=== PATIENT | female | born 1950 | race Caucasian/White ===

== ENCOUNTER 2017-05-02 13:15 | Emergency (ER) | payer OTHER ==
[~2017-05-02] VITALS: Ht 160 cm; Wt 70.2 kg
[~2017-05-02 13:15] MED LIST: ADVAIR HFA120 INHALA IH; ALBUTEROL2.5 MG/3 M IH; CEFTIN500 MG PO; CITALOPRAM HBR40 MG PO; CLINDAMYCIN HC300 MG PO; ENDOCET 5-3251 EACH PO; GABAPENTIN600 MG PO; GLIMEPIRIDE4 MG PO; JANUVIA100 MG PO; LEVAQUIN500 MG PO; LOSARTAN-HCTZ1 EAC2 PO; METFORMIN HCL500 MG PO; NICOTINE PATCH1 EAC2 TD; PIOGLITAZONE HC30 MG PO; PREDNISONE10 M1 PO; SIMVASTATIN80 MG PO; SPIRIVA RESPIMAT4 GM IH; VENTOLIN HFA18 GM IH; ZITHROMAX250 MG PO
[2017-05-02] MEDS ORDERED: PERCOCET 5/31 TABLET PO (18:15)
[2017-05-02 21:17] VITALS: BP 112/78
== END 2017-05-02 21:18 | disposition home or self-care (01) ==
LOC: EME → EDBD 13:15 → EME 13:15
PROC: 2W3MX1Z Immobilization of Left Lower Extremity using Splint (ICD-10-PCS; principal; 2017-05-02)
DX: S82.102A Unspecified fracture of upper end of left tibia, initial encounter for closed fracture (principal); M25.562 Pain in left knee; M25.512 Pain in left shoulder; W10.9XXA Fall (on) (from) unspecified stairs and steps, initial encounter; E78.5 Hyperlipidemia, unspecified; I10 Essential (primary) hypertension; E11.9 Type 2 diabetes mellitus without complications; Z79.84 Long term (current) use of oral hypoglycemic drugs; Z88.0 Allergy status to penicillin; F17.200 Nicotine dependence, unspecified, uncomplicated
CPT/HCPCS: 71010; 72170; 73030; 73560; 73590; 73630; 99281; 99285; J3010

== ENCOUNTER 2017-05-03 20:41 | Inpatient (IN) | payer OTHER ==
[~2017-05-03] VITALS: Ht 162.6 cm; Wt 75.7 kg
[~2017-05-03 20:41] MED LIST changes: +PERCOCET 5/31 TABLET PO
[2017-05-03 21:27] LABS: HEMATOCRIT 36.1 % (36.0-46.0); MCH 25.1 PG (29.0-34.0); MCHC 32.7 G/DL (30.0-36.0); MCV 76.6 FL (83-99); MEAN PLAT.VOLUME 8.5 uM^3 (9.5-12.4); PLATELET COUNT 259 K/uL (156-360); RBC DIS.WIDTH-CV 17.4 % (11.8-14.6); RED BLOOD COUNT 4.71 M/uL (3.80-5.20); WHITE BLOOD COUNT 12.7 K/uL (4.1-10.2)
[2017-05-03 21:35] LABS: CHLORIDE 95 mEq/L (99-109); POTASSIUM 3.5 mEq/L (3.7-5.4); SODIUM 132 mEq/L (136-147)
[2017-05-03 21:37] LABS: GLUCOSE 193 mg/dL (70-99)
[2017-05-03 21:38] LABS: ANION GAP 13 MEQ/L (2-14)
[2017-05-03 21:41] LABS: GFR ESTIMATE (CALCULATED) > 59 mL/min/
[2017-05-03 21:42] LABS: UREA NITROGEN (BUN) 8 mg/dL (9-23)
[2017-05-04] VITALS (7 sets, daily range): BP systolic 120–147; BP diastolic 61–81
[2017-05-04 04:42] LABS: ADD MIUA? YES; BILIRUBIN NEGATIVE; BLOOD NEGATIVE; COLOR YELLOW ((YELLOW)); GLUCOSE (STRIP) NEGATIVE; KETONES 20; LEUKOCYTES SMALL; NITRITE NEGATIVE; PROTEIN (STRIP) 30; SPECIFIC GRAVITY 1.015 (1.000-1.030); UROBILINOGEN 0.2 MG/DL (0.2-1.0)
[2017-05-04 04:56] LABS: BACTERIA 1+ /HPF; CALCIUM OXALATE CRYSTALS 1+ /HPF; EPITHELIAL CELLS 1+ /HPF; HYALINE CASTS 0-5 /LPF; MUCUS TRACE /LPF; UCUL ADDED? YES; WHITE BLOOD CELLS 30-40 /HPF (0-5)
[2017-05-04 05:34] LABS: HEMATOCRIT 36.2 % (36.0-46.0); MCH 25.5 PG (29.0-34.0); MCHC 32.3 G/DL (30.0-36.0); MCV 78.9 FL (83-99); MEAN PLAT.VOLUME 9.1 uM^3 (9.5-12.4); PLATELET COUNT 272 K/uL (156-360); RBC DIS.WIDTH-CV 17.8 % (11.8-14.6); RBC DIS.WIDTH-SD 49.1 % (39-53); RED BLOOD COUNT 4.59 M/uL (3.80-5.20); WHITE BLOOD COUNT 10.8 K/uL (4.1-10.2)
[2017-05-04 05:55] LABS: ANION GAP 9 MEQ/L (2-14); CHLORIDE 95 MEQ/L (99-109); GFR ESTIMATE (CALCULATED) > 59 mL/min/; GLUCOSE 167 mg/dL (70-99); POTASSIUM 3.9 MEQ/L (3.7-5.4); SAMPLE HEMOLYSIS CHECK 0; SAMPLE ICTERIC CHECK 0; SAMPLE LIPEMIA CHECK 0; SODIUM 131 MEQ/L (136-147); UREA NITROGEN (BUN) 10 mg/dL (9-23)
[2017-05-04] MEDS ORDERED: REQUIP0.25 MG PO (07:21)
[2017-05-04] MEDS ORDERED: GLUCOPHAGE500 MG PO (07:22)
[2017-05-04] MEDS ORDERED: HYZAAR 100-11 TABLET PO (13:40)
[2017-05-04] MEDS ORDERED: MULTIVITAMIN1 EAC2 PO (13:41)
[2017-05-04] MEDS ORDERED: CALCIUM 600+D31 EACH PO (13:41)
[2017-05-05 04:50] VITALS: BP 131/78
[2017-05-05 10:07] VITALS: BP 140/81
[2017-05-05 12:48] LABS: POINT-OF-CARE METER ID UU14162513
[2017-05-05 19:27] VITALS: BP 126/71
[2017-05-06 08:00] VITALS: BP 151/89
[2017-05-06 08:26] LABS: POINT-OF-CARE METER ID UU14162513
[2017-05-06 11:27] VITALS: BP 112/66
[2017-05-06 12:54] LABS: POINT-OF-CARE METER ID UU13113700
[2017-05-06 16:10] VITALS: BP 109/69
[2017-05-06 18:22] LABS: POINT-OF-CARE METER ID UU14117124
[2017-05-06 19:24] VITALS: BP 119/72
[2017-05-06 22:02] LABS: POINT-OF-CARE METER ID UU14188577
[2017-05-06 23:24] VITALS: BP 112/65
[2017-05-07 03:38] VITALS: BP 124/73
[2017-05-07 06:49] LABS: POINT-OF-CARE METER ID UU14117124
[2017-05-07 07:58] VITALS: BP 144/58
[2017-05-07 10:51] LABS: POINT-OF-CARE METER ID UU14208753
[2017-05-07 14:35] LABS: HEMATOCRIT 33.6 % (36.0-46.0); MCH 26.1 PG (29.0-34.0); MCHC 31.8 G/DL (30.0-36.0); MEAN PLAT.VOLUME 8.9 uM^3 (9.5-12.4); PLATELET COUNT 228 K/uL (156-360); RBC DIS.WIDTH-CV 18.4 % (11.8-14.6); RBC DIS.WIDTH-SD 53.5 % (39-53); WHITE BLOOD COUNT 10.3 K/uL (4.1-10.2)
[2017-05-07 15:04] LABS: ANION GAP 8 MEQ/L (2-14); CHLORIDE 101 MEQ/L (99-109); GFR ESTIMATE (CALCULATED) > 59 mL/min/; GLUCOSE 154 mg/dL (70-99); POTASSIUM 3.9 MEQ/L (3.7-5.4); SAMPLE HEMOLYSIS CHECK 0; SAMPLE ICTERIC CHECK 0; SAMPLE LIPEMIA CHECK 0; UREA NITROGEN (BUN) 14 mg/dL (9-23)
[2017-05-07 15:14] LABS: SODIUM 138 MEQ/L (136-147)
[2017-05-07 16:05] VITALS: BP 124/78
[2017-05-07 16:35] LABS: POINT-OF-CARE METER ID UU14188577
[2017-05-07 21:31] LABS: POINT-OF-CARE METER ID UU14188577
[2017-05-07 23:32] VITALS: BP 122/77
[2017-05-08 03:53] VITALS: BP 134/72
[2017-05-08 06:13] LABS: POINT-OF-CARE METER ID UU14117124
[2017-05-08 07:40] VITALS: BP 129/76
[2017-05-08 11:53] VITALS: BP 140/77
[2017-05-08 15:35] VITALS: BP 135/79
[2017-05-08 16:32] LABS: POINT-OF-CARE METER ID UU14117124
[2017-05-08 20:25] VITALS: BP 121/67
[2017-05-08 22:02] LABS: POINT-OF-CARE METER ID UU14117124
[2017-05-09] VITALS (7 sets, daily range): BP systolic 119–152; BP diastolic 70–83
[2017-05-09 06:04] LABS: HEMATOCRIT 33.7 % (36.0-46.0); MCH 25.2 PG (29.0-34.0); MCV 78.7 FL (83-99); PLATELET COUNT 264 K/uL (156-360); RBC DIS.WIDTH-SD 50.3 % (39-53); RED BLOOD COUNT 4.28 M/uL (3.80-5.20); WHITE BLOOD COUNT 9.8 K/uL (4.1-10.2)
[2017-05-09 06:32] LABS: ANION GAP 10 MEQ/L (2-14); CHLORIDE 93 MEQ/L (99-109); GFR ESTIMATE (CALCULATED) > 59 mL/min/; GLUCOSE 181 mg/dL (70-99); POTASSIUM 3.2 MEQ/L (3.7-5.4); SAMPLE HEMOLYSIS CHECK 0; SAMPLE ICTERIC CHECK 0; SAMPLE LIPEMIA CHECK 0; SODIUM 136 MEQ/L (136-147); UREA NITROGEN (BUN) 13 mg/dL (9-23)
[2017-05-09 06:57] LABS: POINT-OF-CARE METER ID UU14117124
[2017-05-09 07:58] LABS: MAGNESIUM 1.1 mg/dl (1.3-2.7)
[2017-05-10 04:31] VITALS: BP 142/85
[2017-05-10 06:38] LABS: HEMATOCRIT 33.8 % (36.0-46.0); MCH 26.8 PG (29.0-34.0); MCHC 33.4 G/DL (30.0-36.0); MCV 80.3 FL (83-99); MEAN PLAT.VOLUME 9.3 uM^3 (9.5-12.4); PLATELET COUNT 285 K/uL (156-360); RBC DIS.WIDTH-CV 17.9 % (11.8-14.6); RBC DIS.WIDTH-SD 50.8 % (39-53); RED BLOOD COUNT 4.21 M/uL (3.80-5.20); WHITE BLOOD COUNT 10.1 K/uL (4.1-10.2)
[2017-05-10 06:57] LABS: POINT-OF-CARE METER ID UU14117124
[2017-05-10 06:59] LABS: ANION GAP 8 MEQ/L (2-14); CHLORIDE 93 MEQ/L (99-109); GFR ESTIMATE (CALCULATED) > 59 mL/min/; GLUCOSE 168 mg/dL (70-99); POTASSIUM 3.5 MEQ/L (3.7-5.4); SAMPLE HEMOLYSIS CHECK 0; SAMPLE ICTERIC CHECK 0; SAMPLE LIPEMIA CHECK 0; SODIUM 134 MEQ/L (136-147); UREA NITROGEN (BUN) 12 mg/dL (9-23)
[2017-05-10 08:02] LABS: MAGNESIUM 1.6 mg/dl (1.3-2.7)
[2017-05-10 08:14] VITALS: BP 129/72
[2017-05-10 16:40] VITALS: BP 110/64
[2017-05-10 23:21] VITALS: BP 112/62
[2017-05-11 06:26] LABS: POINT-OF-CARE METER ID UU14117124
[2017-05-11 06:59] LABS: ANION GAP 6 MEQ/L (2-14); CHLORIDE 94 MEQ/L (99-109); GFR ESTIMATE (CALCULATED) > 59 mL/min/; GLUCOSE 172 mg/dL (70-99); POTASSIUM 4.1 MEQ/L (3.7-5.4); SAMPLE HEMOLYSIS CHECK 0; SAMPLE ICTERIC CHECK 0; SAMPLE LIPEMIA CHECK 0; SODIUM 135 MEQ/L (136-147); UREA NITROGEN (BUN) 18 mg/dL (9-23)
[2017-05-11 08:08] VITALS: BP 121/72
[2017-05-11 11:19] LABS: POINT-OF-CARE METER ID UU14188577
[2017-05-11 11:51] VITALS: BP 141/63
[2017-05-11] MEDS ORDERED: FUROSEMIDE20 MG PO (14:02)
[2017-05-11] MEDS ORDERED: OXYCODONE-APAP1 EACH PO (14:02)
[2017-05-11] MEDS ORDERED: LOPRESSOR25 MG PO (14:02)
[2017-05-11] MEDS ORDERED: NICOTINE PATCH1 EAC1 TD (14:02)
[2017-05-11] MEDS ORDERED: DOCUSATE SODIU100 MG PO (14:02)
[2017-05-11 17:12] VITALS: BP 131/68
== END 2017-05-11 17:57 | DRG 563 ==
LOC: EME → EDBD 20:41 → EME 20:41 → EDOF 23:56 → ENRESERV 05-04 00:04 → 5WEST 05-04 00:55 → ENRESERV 05-04 13:54 → 3EAST 05-06 15:06
PROVIDERS: Emergency Medicine; Hospitalist; Nurse Practitioner Adult Health; Physician Assistant
PROC: 2W3MX2Z Immobilization of Left Lower Extremity using Cast (ICD-10-PCS; principal; 2017-05-07)
DX: S82.192A Other fracture of upper end of left tibia, initial encounter for closed fracture (principal); W19.XXXA Unspecified fall, initial encounter; N39.0 Urinary tract infection, site not specified; K52.9 Noninfective gastroenteritis and colitis, unspecified; E87.6 Hypokalemia; T50.1X5A Adverse effect of loop [high-ceiling] diuretics, initial encounter; E83.42 Hypomagnesemia; E86.0 Dehydration; E87.1 Hypo-osmolality and hyponatremia; E78.5 Hyperlipidemia, unspecified; E11.9 Type 2 diabetes mellitus without complications; I10 Essential (primary) hypertension; F41.9 Anxiety disorder, unspecified; I08.3 Combined rheumatic disorders of mitral, aortic and tricuspid valves; I27.2 Other secondary pulmonary hypertension; I45.10 Unspecified right bundle-branch block; J98.11 Atelectasis; J44.9 Chronic obstructive pulmonary disease, unspecified; R00.0 Tachycardia, unspecified; F17.210 Nicotine dependence, cigarettes, uncomplicated; Z79.84 Long term (current) use of oral hypoglycemic drugs; Z88.0 Allergy status to penicillin
CPT/HCPCS: 71010; 71020; 71275; 72170; 73030; 73560; 73590; 73630; 73700; 80048; 81003; 82948; 83735; 85027; 85379; 87086; 87493; 93005; 93306; 94640; 94640 76; 94760; 94799; 97530 GO; 97530 GP; 99202; 99281; 99285; G0378; G8978 GP CM; G8979 GP CK; J0696; J1170; J1650; J1815; J1940; J2270; J2405; J3010; J3475; J7030; J7050

== ENCOUNTER 2017-05-17 18:12 | Inpatient (IN) | payer OTHER ==
[~2017-05-17] VITALS: Ht 160 cm; Wt 63.8 kg
[~2017-05-17 18:12] MED LIST changes: +CALCIUM 600+D31 EACH PO; +DOCUSATE SODIU100 MG PO; +FUROSEMIDE20 MG PO; +GLUCOPHAGE500 MG PO; +HYZAAR 100-11 TABLET PO; +LOPRESSOR25 MG PO; +MULTIVITAMIN1 EAC2 PO; +NICOTINE PATCH1 EAC1 TD; +OXYCODONE-APAP1 EACH PO; +REQUIP0.25 MG PO
[2017-05-17 19:20] LABS: HEMATOCRIT 33.5 % (36.0-46.0); MCH 25.5 PG (29.0-34.0); MCHC 32.5 G/DL (30.0-36.0); MCV 78.5 FL (83-99); MEAN PLAT.VOLUME 8.2 uM^3 (9.5-12.4); PLATELET COUNT 363 K/uL (156-360); RBC DIS.WIDTH-CV 17.4 % (11.8-14.6); RBC DIS.WIDTH-SD 49.5 % (39-53); RED BLOOD COUNT 4.27 M/uL (3.80-5.20)
[2017-05-17 19:28] LABS: CHLORIDE 98 mEq/L (99-109); SODIUM 135 mEq/L (136-147)
[2017-05-17 19:29] LABS: GLUCOSE 108 mg/dL (70-99)
[2017-05-17 19:31] LABS: ANION GAP 12 MEQ/L (2-14)
[2017-05-17 19:32] LABS: ADD MIUA? YES; BILIRUBIN NEGATIVE; BLOOD NEGATIVE; COLOR YELLOW ((YELLOW)); GLUCOSE (STRIP) NEGATIVE; KETONES NEGATIVE; LEUKOCYTES LARGE; NITRITE NEGATIVE; PROTEIN (STRIP) NEGATIVE; SPECIFIC GRAVITY 1.014 (1.000-1.030)
[2017-05-17 19:33] LABS: GFR ESTIMATE (CALCULATED) > 59 mL/min/
[2017-05-17 19:34] LABS: UREA NITROGEN (BUN) 11 mg/dL (9-23)
[2017-05-17 19:35] LABS: POTASSIUM 3.1 mEq/L (3.7-5.4)
[2017-05-17 19:46] LABS: BACTERIA RARE /HPF; EPITHELIAL CELLS 1+ /HPF; MUCUS TRACE /LPF; UCUL ADDED? YES; WHITE BLOOD CELLS TNTC /HPF (0-5)
[2017-05-17 23:27] LABS: POINT-OF-CARE METER ID UU13113747
[2017-05-18 02:36] VITALS: BP 128/72
[2017-05-18 03:39] LABS: METH RESISTANT S AUREUS PCR NEGATIVE (NEGATIVE)
[2017-05-18 03:47] LABS: PROBE CHECK PASS; SPECIMEN PROCESSING CONTROL PASS
[2017-05-18 06:34] LABS: POINT-OF-CARE METER ID UU14208750
[2017-05-18 07:12] VITALS: BP 120/67
[2017-05-18 08:41] LABS: MCH 25.2 PG (29.0-34.0); MCHC 31.5 G/DL (30.0-36.0); MEAN PLAT.VOLUME 8.4 uM^3 (9.5-12.4); PLATELET COUNT 379 K/uL (156-360); RBC DIS.WIDTH-CV 17.6 % (11.8-14.6); RBC DIS.WIDTH-SD 51.3 % (39-53); RED BLOOD COUNT 4.25 M/uL (3.80-5.20); WHITE BLOOD COUNT 10.3 K/uL (4.1-10.2)
[2017-05-18 09:14] LABS: ANION GAP 6 MEQ/L (2-14); CHLORIDE 100 MEQ/L (99-109); GFR ESTIMATE (CALCULATED) > 59 mL/min/; GLUCOSE 100 mg/dL (70-99); SAMPLE HEMOLYSIS CHECK 0; SAMPLE ICTERIC CHECK 0; SAMPLE LIPEMIA CHECK 0; SODIUM 134 MEQ/L (136-147); UREA NITROGEN (BUN) 7 mg/dL (9-23)
[2017-05-18 09:15] LABS: POTASSIUM 3.9 MEQ/L (3.7-5.4)
[2017-05-18 11:29] LABS: POINT-OF-CARE METER ID UU14162508
[2017-05-18 11:34] VITALS: BP 96/60
[2017-05-18 15:24] LABS: POINT-OF-CARE METER ID UU14208750
[2017-05-18 15:35] VITALS: BP 108/62
[2017-05-18 21:22] VITALS: BP 133/73
[2017-05-18 22:12] LABS: POINT-OF-CARE METER ID UU14162508
[2017-05-19 00:47] VITALS: BP 126/78
[2017-05-19 04:21] VITALS: BP 119/71
[2017-05-19 06:10] LABS: MCHC 32.1 G/DL (30.0-36.0); MCV 81.1 FL (83-99); MEAN PLAT.VOLUME 8.6 uM^3 (9.5-12.4); PLATELET COUNT 368 K/uL (156-360); RBC DIS.WIDTH-CV 17.8 % (11.8-14.6); RBC DIS.WIDTH-SD 52.5 % (39-53); RED BLOOD COUNT 4.07 M/uL (3.80-5.20); WHITE BLOOD COUNT 10.1 K/uL (4.1-10.2)
[2017-05-19 06:22] LABS: POINT-OF-CARE METER ID UU14162508
[2017-05-19 06:35] LABS: ANION GAP 7 MEQ/L (2-14); CHLORIDE 97 MEQ/L (99-109); GFR ESTIMATE (CALCULATED) > 59 mL/min/; SAMPLE HEMOLYSIS CHECK 0; SAMPLE ICTERIC CHECK 0; SAMPLE LIPEMIA CHECK 0; SODIUM 132 MEQ/L (136-147); UREA NITROGEN (BUN) 10 mg/dL (9-23)
[2017-05-19 06:57] LABS: GLUCOSE 171 mg/dL (70-99)
[2017-05-19 07:00] VITALS: BP 115/67
[2017-05-19 07:40] LABS: Estimated Average Glucose 146 mg/dL (70-123); HEMOGLOBIN A1c (GLYCOHEMOGLOB) 6.7 % HGB (Below 5.7)
[2017-05-19 11:25] LABS: POINT-OF-CARE METER ID UU14162508
[2017-05-19 15:15] VITALS: BP 102/61
[2017-05-19 16:45] LABS: POINT-OF-CARE METER ID UU14162508
[2017-05-19 21:41] LABS: POINT-OF-CARE METER ID UU14162508
[2017-05-20 00:47] VITALS: BP 108/65
[2017-05-20 06:35] LABS: POINT-OF-CARE METER ID UU14208750
[2017-05-20 07:56] VITALS: BP 126/69
[2017-05-20] MEDS ORDERED: POLYETHYLENE GL17 GM PO (10:31)
[2017-05-20 11:37] LABS: POINT-OF-CARE METER ID UU14208750
[2017-05-20] MEDS ORDERED: AMARYL1 MG PO (13:43)
[2017-05-20 16:09] LABS: POINT-OF-CARE METER ID UU14208750
== END 2017-05-20 16:18 | DRG 872 ==
LOC: EME 18:12 → EDOF 23:11 → ENRESERV 23:13 → EDOF 05-18 00:03 → 2EAST 05-18 00:03
PROVIDERS: Emergency Medicine; Hospitalist
DX: A41.9 Sepsis, unspecified organism (principal); N30.01 Acute cystitis with hematuria; J44.9 Chronic obstructive pulmonary disease, unspecified; E78.5 Hyperlipidemia, unspecified; E11.649 Type 2 diabetes mellitus with hypoglycemia without coma; E87.6 Hypokalemia; E86.0 Dehydration; G25.81 Restless legs syndrome; Z79.84 Long term (current) use of oral hypoglycemic drugs; I10 Essential (primary) hypertension; K59.00 Constipation, unspecified; Z87.891 Personal history of nicotine dependence; H54.7 Unspecified visual loss
CPT/HCPCS: 73590; 80048; 81003; 82948; 83036; 83630; 85027; 87086; 87493; 87506; 87641; 99281; 99285; G0378; J0696; J1644; J1815; J2405; J7030; J7050; S0030